=== PATIENT | female | born 1955 | race Caucasian/White ===

== ENCOUNTER → 2018-07-13 | Outpatient (CLI) | payer BC, MEDICARE | END | disposition home or self-care (01) | LOC: RADPV 13:47 | PROVIDERS: ATTEND Nurse Practitioner | DX: N83.201 Unspecified ovarian cyst, right side (principal) | CPT/HCPCS: 76830; 76856 ==

== ENCOUNTER → 2018-08-31 | Outpatient (CLI) | payer BC | END | disposition home or self-care (01) | LOC: RADPV 12:15 | PROVIDERS: ATTEND Nurse Practitioner | DX: M17.0 Bilateral primary osteoarthritis of knee (principal); M19.071 Primary osteoarthritis, right ankle and foot; M25.462 Effusion, left knee; M25.461 Effusion, right knee ==